=== PATIENT | female | born 2000 | race Caucasian/White ===

== ENCOUNTER 2021-04-30 22:13 | Emergency (ER) | payer OTHER ==
[2021-04-30] MEDS ORDERED: TETANUS & DIPHTHERIA TOX,ADULT 0.5 ML VIAL ONE (23:58)
--- NOTE | 2021-05-01 01:26 | ER ---
Nurse's Notes [facility] Name: Tomasa Mccloud Age: 20 yrs Sex: Female : 2000 Arrival Date: 04/30/2021 Time: 22:16 Bed 25 Private MD: Diagnosis: Laceration without foreign body of right lesser toe(s) without damage to nail, initial encounter-right fifth toe Presentation: 04/30 23:03 Chief complaint: Patient states: stepped on a piece of glass, bleeding controlled. sj1 Coronavirus screen: Vaccine status: Patient reports being unvaccinated. Ebola Screen: Patient negative for fever greater than or equal to 101.5 degrees Fahrenheit, and additional compatible Ebola Virus Disease symptoms Patient denies exposure to infectious person. Patient denies travel to an Ebola-affected area in the 21 days before illness onset. No symptoms or risks identified at this time. Complicating Factors: Glass or an other foreign body is present in the wound. Initial Sepsis Screen: Does the patient meet any 2 criteria? No. Patient's initial sepsis screen is negative. Does the patient have a suspected source of infection? No. Patient's initial sepsis screen is negative. Risk Assessment: Do you want to hurt yourself or someone else? Patient reports no desire to harm self or others. Onset of symptoms was April 30, 2021. 23:03 Method Of Arrival: Wheelchair sj 23:03 Acuity: MARIA T 4 sj1 Triage Assessment: 23:05 General: Appears in no apparent distress. Behavior is calm, cooperative, appropriate sj1 for age. Pain: Denies pain. Complains of pain in numbness in rt foot, 5th digit Pain does not radiate. Pain Quality of pain is described as numb. EENT: No deficits noted. Neuro: No deficits noted. Cardiovascular: No deficits noted. Respiratory: No deficits noted. GI: No deficits noted. : No deficits noted. Derm: Reports lac to rt foot. Injury Description: Laceration sustained to rt foot. DENTAL PATIENT COORDINATOR: 05/01 00:18 LMP 04/15/2021 dc2 Historical: - Allergies: 04/30 23:05 No Known Allergies; sj1 - Home Meds: 23:05 Unable to obtain [Active]; sj1 - PMHx: 23:05 None; sj1 - PSHx: 23:05 Appendectomy; sj1 - Immunization history:: Adult Immunizations up to date. - Social history:: Smoking status: Patient reports the use of cigarette tobacco products, smokes one-half pack cigarettes per day, Patient uses alcohol, occasionally. Patient/guardian denies using street drugs. Screenin:08 Abuse screen: Denies threats or abuse. Denies injuries from another. Nutritional sj1 screening: No deficits noted. Tuberculosis screening: No symptoms or risk factors identified. Fall Risk None identified. Assessment: 23:08 Musculoskeletal: Reports numbness in 5th digit, rt foot. sj1 23:14 Reassessment: Pt foot very dirty, basin with saline and cleanser to bedside for pt to dc2 soak foot to be able to really see wound. 23:14 Injury Description: Laceration is. dc2 23:14 Derm: Livia 1/2 inch thin laceration to bottom of right 5th toe, bleeding controlled. dc2 05/01 01:23 Reassessment: Suturing of toe completed, pt tolerate well. Will get ready for discharge.dc2 Vital Signs: 10 23:03 BP 116 / 68 LA (auto/lg); Pulse 87; Resp 18; Temp 98.3; Pulse Ox 97% on R/A; Weight 1 113.4 kg (R); Height 5 ft. 5 in. (165.10 cm) (R); Pain 0/10; 10 00:00 BP 120 / 62; Pulse 80; Resp 16; Pulse Ox 99% ; Pain 0/10; dc2 01:00 BP 112 / 79; Pulse 70; Resp 16; Pulse Ox 99% on R/A; Pain 0/10; dc2 01:24 BP 112 / 79; dc2 10 23:03 Body Mass Index 41.60 (113.40 kg, 165.10 cm) [facility] ED Course: 04/30 22:16 Patient arrived in ED. cf2 23:05 Triage completed. sj1 23:05 Arm band placed on left wrist. sj1 23:08 Patient has correct armband on for positive identification. sj1 23:13 Deandre Conn PA is PHCP. cp 23:13 Kenny Laguerre MD is Attending Physician. cp 23:13 Natacha Hager RN is Primary Nurse. dc2 23:47 XRAY Foot RIGHT 3 View In Process Unspecified. EDMS 05/01 00:00 No apparent distress. Playing on snapchat, voices no needs at this time, vss. dc2 00:30 Awaiting ED provider evaluation. dc2 01:10 Nurse Practitioner and/or Physician Housekeeper Home to see patient. dc2 01:34 No provider procedures requiring assistance completed. dc2 01:34 Patient did not have IV access during this emergency room visit. dc2 03:25 Primary Nurse role handed off by Natacha Hager RN em Administered Medications: 04/30 23:33 Drug: Tetanus-Diphtheria Toxoid Adult 0.5 ml {Fitness And Wellness Director: [employer]. Exp: dc2 11/28/2022. Lot #: [id number]. } Route: IM; Site: left deltoid; 05/01 01:02 Follow up: Response: No adverse reaction dc2 01:27 Follow up: Response: No adverse reaction dc2 01:05 Drug: Bupivacaine (0.5 %) 5 ml {Note: Given to Deandre Alejandrage - Provider.} Volume: 10 ml; dc2 Route: Infiltration; 01:26 Follow up: Response: No adverse reaction dc2 01:06 Drug: Lidocaine (1 %) 5 ml {Note: Given to Deandre Alejandrage - Provider.} Volume: 5 ml; dc2 Route: Infiltration; 01:26 Follow up: Response: No adverse reaction dc2 Outcome: 01:25 Discharge ordered by . cp 01:33 Discharged to home ambulatory. dc2 01:33 Condition: stable 01:33 Discharge instructions given to Instructed on discharge instructions, follow up and referral plans. Demonstrated understanding of instructions, follow-up care. 01:34 Patient left the ED. dc2 03:34 Patient left the ED. em Signatures: Dispatcher [employer] EDCA Maik Sanders RN RN em Deandre Conn PA PA cp Frazier, Celesta 2 Natacha Hager RN RN dc2 Chey Sanders RN RN sj1
--- NOTE | 2021-05-01 01:26 | EDPHYS ---
Physician Documentation [facility] Name: Tomasa Mccloud Age: 20 yrs Sex: Female : 2000 Arrival Date: 04/30/2021 Time: 22:16 Bed 25 Private MD: ED Physician Kenny Laguerre HPI: 04/30 23:30 This 20 yrs old Female presents to ER via Wheelchair with complaints of cp Laceration To Foot, NUMBESS IN TOE. 23:30 The patient has a laceration and stepped on glass. The laceration(s) is(are) located on cp the plantar surface of right small toe. 23:30 Onset: The symptoms/episode began/occurred today. Associated signs and symptoms: cp Pertinent positives: numbness of right small toe, Pertinent negatives: heavy bleeding. CREW BOAT OPERATOR: 05/01 00:18 LMP 04/15/2021 dc2 Historical: - Allergies: 04/30 23:05 No Known Allergies; sj1 - Home Meds: 23:05 Unable to obtain [Active]; sj1 - PMHx: 23:05 None; sj1 - PSHx: 23:05 Appendectomy; sj1 - Immunization history:: Adult Immunizations up to date. - Social history:: Smoking status: Patient reports the use of cigarette tobacco products, smokes one-half pack cigarettes per day, Patient uses alcohol, occasionally. Patient/guardian denies using street drugs. ROS: 23:35 Skin: Positive for laceration(s), of the plantar surface of right small toe. cp 23:35 Constitutional: Negative for fever. cp 23:35 Neuro: Positive for numbness, of the right small toe, Negative for weakness. 23:35 All other systems are negative. Exam: 23:40 Constitutional: The patient appears in no acute distress, alert, awake, comfortable, cp well developed, well nourished. 23:40 Head/Face: Normocephalic, atraumatic. cp 23:40 Cardiovascular: Rate: normal. 23:40 Respiratory: the patient does not display signs of respiratory distress, Respirations: normal. 23:40 Musculoskeletal/extremity: Extremities: noted in the right fifth toe: ROM: full active range of motion, in the right fifth toe, Perfusion: the extremity is normally perfused throughout, decreased sensation, Tendon exam: specific tendon testing normal through active and passive range of motion 23:40 Skin: injury, laceration(s), the wound is approximately 2 cm(s), of the plantar side at base of right fifth toe, that can be described as no foreign body, linear, with mild bleeding. Vital Signs: 23:03 BP 116 / 68 LA (auto/lg); Pulse 87; Resp 18; Temp 98.3; Pulse Ox 97% on R/A; Weight sj1 113.4 kg (R); Height 5 ft. 5 in. (165.10 cm) (R); Pain 0/10; 05/01 00:00 BP 120 / 62; Pulse 80; Resp 16; Pulse Ox 99% ; Pain 0/10; dc2 01:00 BP 112 / 79; Pulse 70; Resp 16; Pulse Ox 99% on R/A; Pain 0/10; dc2 01:24 BP 112 / 79; dc2 04/30 23:03 Body Mass Index 41.60 (113.40 kg, 165.10 cm) [facility] Laceration: 01:30 Wound Repair of 2cm ( 0.8in ) subcutaneous laceration to base of right fifth toe cp plantar surface. Linear shaped.. Neuro:Numbness distal to wound.. Vascular:Intact distal to wound. Tendon:Intact distal to wound. Anesthesia: Wound infiltrated with 4 mls of Lido/Marcaine. Wound prep: Moderate cleansing by me, Wound irrigation by me. Skin closed with 3 5-0 Prolene using interrupted sutures and sterile technique. Dressed with Bacitracin, 4x4's. Patient tolerated well. MDM: 04/30 23:16 Patient medically screened. cp 05/01 00:00 Differential diagnosis: superficial laceration, tendon injury, vascular injury, neuro cp injury. 00:33 Test interpretation: by ED physician or midlevel provider: xrays of right foot negative cp for fracture and/or foreign body. 01:25 Data reviewed: vital signs, nurses notes, radiologic studies, plain films, and as a cp result, I will discharge patient. 04/30 23:24 Order name: XRAY Foot RIGHT 3 View cp 05/01 00:46 Order name: Dressing - Wound; Complete Time: 01:06 cp 05/01 00:46 Order name: Gloves, Sterile; Complete Time: 01:06 cp 05/01 00:46 Order name: Setup Suture Tray; Complete Time: 01:06 cp 05/01 01:24 Order name: Wound dressing; Complete Time: :33 cp Administered Medications: 04/30 23:33 Drug: Tetanus-Diphtheria Toxoid Adult 0.5 ml {Communication Signals Intelligence: [employer]. Exp: dc2 11/28/2022. Lot #: [id number]. } Route: IM; Site: left deltoid; 05/01 01:02 Follow up: Response: No adverse reaction dc2 01:27 Follow up: Response: No adverse reaction dc2 01:05 Drug: Bupivacaine (0.5 %) 5 ml {Note: Given to Deandre Eduarda - Provider.} Volume: 10 ml; dc2 Route: Infiltration; : Follow up: Response: No adverse reaction dc2 01:06 Drug: Lidocaine (1 %) 5 ml {Note: Given to Deandre Eduarda - Provider.} Volume: 5 ml; dc2 Route: Infiltration; : Follow up: Response: No adverse reaction dc2 Disposition: 03:30 Chart complete. cp 04:28 Co-signature as Attending Physician, Kenny Laguerre MD I agree with the assessment and rn plan of care. Attestation: The patient's history, exam findings, diagnostics, and a summary of any interventions or procedures was reviewed in detail with Deandre TAYLOR. Disposition Summary: 05/01/21 01:25 Discharge Ordered Location: Home cp Problem: new cp Symptoms: have improved cp Condition: Stable cp Diagnosis - Laceration without foreign body of right lesser toe(s) without damage to nail, cp initial encounter - right fifth toe Followup: cp - With: Private Physician - When: 7 - 10 days - Reason: Staple/Suture removal Discharge Instructions: - Discharge Summary Sheet cp - Laceration Care, Adult cp Forms: - Medication Reconciliation Form cp - Thank You Letter cp - Antibiotic Education cp - Prescription Opioid Use cp Prescriptions: - cephalexin 500 mg Oral capsule - take 1 capsule by ORAL route 3 times per day for 10 days; 30 capsule; Refills: cp 0, Product Selection Permitted Signatures: Dispatcher [employer] EDKenny Alvares MD MD rn Page, Corey, PA PA cp Alley, MARLENE Manzano RN dc2 Chey Sanders RN RN sj1 Corrections: (The following items were deleted from the chart) 01:33 01:24 Ortho shoe ordered. cp dc2 03:27 01:25 Laceration without foreign body of left lesser toe(s) without damage to nail - cp left fifth toe cp 03:28 04/30 23:30 The laceration(s) is(are) located on the plantar surface of left small toe, cp cp
[2021-05-01] MEDS ORDERED: BUPIVACAINE 0.5% PF 10 ML VIAL ONE (01:30)
[2021-05-01] MEDS ORDERED: LIDOCAINE 1% MPF 5 ML VIAL ONE (01:30)
[2021-05-01 01:39] VITALS: TEMP 98.3
[2021-05-01 01:41] VITALS: O2SAT 99
[2021-05-01 01:42] VITALS: BP 112/79
--- NOTE | 2021-05-01 08:28 | RAD REPORT ---
EXAM DESCRIPTION: RAD - Foot Right 3 View - 04/30/2021 11:47 pm CLINICAL HISTORY: Right foot pain status post injury FINDINGS: No fracture or dislocation is seen. A radiopaque foreign body is not visualized
== END 2021-05-01 03:34 | disposition home or self-care (01) ==
LOC: ER 22:13
PROC: 0JQQ0ZZ Repair Right Foot Subcutaneous Tissue and Fascia, Open Approach (ICD-10-PCS; principal; 2021-05-01)
DX: S91.114A Laceration without foreign body of right lesser toe(s) without damage to nail, initial encounter (principal); W25.XXXA Contact with sharp glass, initial encounter; Z23 Encounter for immunization; F17.210 Nicotine dependence, cigarettes, uncomplicated
CPT/HCPCS: 90471; 90714; 99283

== ENCOUNTER 2021-05-11 09:46 | Emergency (ER) | payer OTHER ==
--- NOTE | 2021-05-11 10:24 | EDPHYS ---
Physician Documentation [facility] Name: Tomasa Mccloud Age: 20 yrs Sex: Female : 2000 Arrival Date: 05/11/2021 Time: 09:48 Bed 14 Private MD: ED Physician French Rojas HPI: 05/11 10:22 This 20 yrs old Female presents to ER via Ambulatory with complaints of pm1 Suture Removal. 10:22 The patient has sutures on the right fifth toe. Previous treatment: The patient was pm1 initially treated 10 day(s) ago, the care was rendered at Treatment type: The patient's original treatment included sutures. Sutures/justin progress: The patient has no c/o's. The wound is well-healing with no redness, swelling, discharge, or dehiscence reported. The patient has not experienced similar symptoms in the past. The patient has not recently seen a physician. Presenting to the ER for suture removal. 3 sutures put to right pinky toe 10 days ago. ARTILLERY METEOROLOGICAL MAN: 10:17 LMP N/A - tw2 Historical: - Allergies: 10:04 No Known Allergies; aa5 - PMHx: 10:04 None; aa5 - PSHx: 10:04 Appendectomy; aa5 - Immunization history:: Adult Immunizations up to date. - Social history:: Smoking status: Patient reports the use of cigarette tobacco products, smokes one-half pack cigarettes per day. ROS: 10:22 Constitutional: Negative for fever, chills, and weight loss, Cardiovascular: Negative pm1 for chest pain, palpitations, and edema, Respiratory: Negative for shortness of breath, cough, wheezing, and pleuritic chest pain. 10:22 Neuro: Negative for headache, weakness, numbness, tingling, and seizure. 10:22 MS/extremity: Positive for laceration, of the right fifth toe, Negative for decreased range of motion. 10:22 Skin: Positive for laceration(s), of the right fifth toe. 10:22 All other systems are negative. Exam: 10:22 Constitutional: This is a well developed, well nourished patient who is awake, alert, pm1 and in no acute distress. Head/Face: Normocephalic, atraumatic. 10:22 Cardiovascular: Exam negative for acute changes, Rate: normal, Rhythm: regular, Pulses: no pulse deficits are appreciated. 10:22 Respiratory: Exam negative for acute changes, respiratory distress, shortness of breath. 10:22 Skin: Wound recheck: Suture laceration closure: the wound is healing well, the edges are well approximated, no evidence of dehiscence, no drainage, no erythema, no swelling. 10:22 Neuro: Exam negative for acute changes, Orientation: is normal, Mentation: is normal, Motor: is normal, moves all fours. Vital Signs: 10:03 BP 133 / 73; Pulse 84; Resp 18 S; Temp 97.3(TE); Pulse Ox 100% on R/A; aa5 MDM: 10:13 Patient medically screened. pm1 10:22 Data reviewed: vital signs. Data interpreted: Pulse oximetry: on room air is 100 %. pm1 Interpretation: normal. Counseling: I had a detailed discussion with the patient and/or guardian regarding: the historical points, exam findings, and any diagnostic results supporting the discharge/admit diagnosis, the need for outpatient follow up, to return to the emergency department if symptoms worsen or persist or if there are any questions or concerns that arise at home. Administered Medications: No medications were administered Disposition: 05/12 08:48 Co-signature as Attending Physician, French Rojas MD I agree with the assessment and sp3 plan of care. Disposition Summary: 05/11/21 10:23 Discharge Ordered Location: Home pm1 Problem: new pm1 Symptoms: have improved pm1 Condition: Stable pm1 Diagnosis - Encounter for removal of sutures pm1 Followup: pm1 - With: Emergency Department - When: As needed - Reason: Worsening of condition Followup: pm1 - With: Private Physician - When: As needed - Reason: Recheck today's complaints, Continuance of care, Re-evaluation by your physician Discharge Instructions: - Discharge Summary Sheet pm1 - Suture Removal, Care After pm1 Forms: - Medication Reconciliation Form pm1 - Thank You Letter pm1 - Antibiotic Education pm1 - Prescription Opioid Use pm1 Signatures: Tish Angela RN RN aa5 Wilfredo Cleaning, [employer] SOCIAL WORKER PALLIATIVE CARE pm1 French Rojas MD MD sp3
--- NOTE | 2021-05-11 10:24 | ER ---
Nurse's Notes [facility] Name: Tomasa Mccloud Age: 20 yrs Sex: Female : 2000 Arrival Date: 05/11/2021 Time: 09:48 Bed 14 Private MD: Diagnosis: Encounter for removal of sutures Presentation: 05/11 10:03 Chief complaint: Patient states: need for suture removal from right little toe, pt aa5 reports justin were placed on 05/01/21. Coronavirus screen: At this time, the client does not indicate any symptoms associated with coronavirus-19. Ebola Screen: No symptoms or risks identified at this time. Initial Sepsis Screen: Does the patient meet any 2 criteria? No. Patient's initial sepsis screen is negative. Does the patient have a suspected source of infection? No. Patient's initial sepsis screen is negative. Risk Assessment: Do you want to hurt yourself or someone else? Patient reports no desire to harm self or others. Onset of symptoms was May 11, 2021. 10:03 Acuity: MARIA T 4 aa5 10:03 Method Of Arrival: Ambulatory aa5 MANAGER CARGO: 10:17 LMP N/A - tw2 Historical: - Allergies: 10:04 No Known Allergies; aa5 - PMHx: 10:04 None; aa5 - PSHx: 10:04 Appendectomy; aa5 - Immunization history:: Adult Immunizations up to date. - Social history:: Smoking status: Patient reports the use of cigarette tobacco products, smokes one-half pack cigarettes per day. Screenin:09 Abuse screen: Denies threats or abuse. Nutritional screening: No deficits noted. tw2 Tuberculosis screening: No symptoms or risk factors identified. Fall Risk None identified. Assessment: 10:17 General: Appears in no apparent distress. Behavior is calm, cooperative, appropriate tw2 for age. Pain: Denies pain. Neuro: Level of Consciousness is awake, alert, obeys commands, Oriented to person, place, time, situation. Cardiovascular: Capillary refill < 3 seconds. Respiratory: Airway is patent Respiratory effort is even, unlabored, Respiratory pattern is regular, symmetrical. 10:20 Reassessment: provider at bedside at this time. tw2 10:29 Reassessment: Patient appears in no apparent distress at this time. No changes from tw2 previously documented assessment. Patient is alert, oriented x 3, equal unlabored respirations, skin warm/dry/pink. Vital Signs: 10:03 BP 133 / 73; Pulse 84; Resp 18 S; Temp 97.3(TE); Pulse Ox 100% on R/A; aa5 ED Course: 09:48 Patient arrived in ED. am2 10:03 Arm band placed on. aa5 10:04 Triage completed. aa5 10:08 Jyoti Mcginnis RN is Primary Nurse. tw2 10:09 Bed in low position. Call light in reach. tw2 10:10 Wilfredo Cleaning NP is PHCP. pm1 10:10 French Rojas MD is Attending Physician. pm1 10:28 No provider procedures requiring assistance completed. Patient did not have IV access tw2 during this emergency room visit. Administered Medications: No medications were administered Outcome: 10:23 Discharge ordered by MD. pm1 10:28 Discharged to home ambulatory. tw2 10:28 Condition: stable 10:28 Discharge instructions given to patient, Instructed on discharge instructions, follow up and referral plans. Demonstrated understanding of instructions, follow-up care. 10:29 Patient left the ED. tw2 Signatures: Tish Angela RN RN aa5 Wilfredo Cleaning NP TRAVELING PHLEBOTOMIST pm1 Jyoti Mcginnis RN RN tw2 [facility]
[2021-05-11 11:00] VITALS: BP 133/73; TEMP 97.3; O2SAT 100
== END 2021-05-11 10:29 | disposition home or self-care (01) ==
LOC: ER 09:46
DX: Z48.02 Encounter for removal of sutures (principal); F17.210 Nicotine dependence, cigarettes, uncomplicated
CPT/HCPCS: 99281